=== PATIENT | female | born 1975 | race Caucasian/White ===

== ENCOUNTER → 2017-05-19 | Outpatient (CLI) | payer OTHER ==
--- NOTE | 2017-05-20 15:16 | MAMMOGRAPHY REPORT ---
BILATERAL FIRST EVER DIGITAL SCREENING MAMMOGRAM TOMOSYNTHESIS WITH CAD: 05/19/2017 CLINICAL HISTORY: Routine screening. Patient has no complaints. TECHNIQUE: Breast tomosynthesis in addition to standard 2D mammography was performed. Current study was also evaluated with a Computer Aided Detection (CAD) system. COMPARISON: No prior exams were available for comparison. BREAST COMPOSITION: There are scattered areas of fibroglandular density in both breasts. FINDINGS: There is a 5 mm focal asymmetry in the lower inner middle one third of the left breast, fo r which additional spot compression tomosynthesis views and possible ultrasound are recommended. There are grouped benign dermal calcifications in the left lower inner quadrant. No other suspicious mass, architectural distortion or cluster of microcalcifications is seen. IMPRESSION: ACR BI-RADS CATEGORY 0: INCOMPLETE EVALUATION: NEED ADDITIONAL IMAGING EVALUATION The 5 mm focal asymmetry in the lower inner left breast needs additional evaluation. The patient will be called to schedule an appointment. Approximately 10% of breast cancers are not detected with mammography. A negative mammographic report should not delay biopsy if a clinically suggestive mass is present. Sophia Tabor M.D. ay/:05/19/2017 15:39:57 Microbiology Laboratory Manager: Sonal SIMENTAL(Nish)(Kim), [facility] letter sent: Addl Imaging 0 BI-RADS Code: ACR BI-RADS Category 0: Incomplete Evaluation: Need Additional Imaging Evaluation
== END | disposition home or self-care (01) ==
LOC: C.MAMM 14:19
PROVIDERS: ATTEND Family Medicine
DX: Z12.31 Encounter for screening mammogram for malignant neoplasm of breast (principal); N64.9 Disorder of breast, unspecified

== ENCOUNTER → 2017-06-16 | Outpatient (CLI) | payer OTHER ==
--- NOTE | 2017-06-17 07:58 | MAMMOGRAPHY REPORT ---
UNILATERAL LEFT DIGITAL DIAGNOSTIC MAMMOGRAM TOMOSYNTHESIS AND TARGETED LEFT ULTRASOUND: 06/16/2017 CLINICAL HISTORY: Callback from baseline screening mammogram for a 5 mm focal asymmetry in the lower inner quadrant of the left breast. No strong family history of breast cancer. TECHNIQUE: Spot compression left CC and MLO tomosynthesis images were obtained. COMPARISON: Comparison is made to exam dated: 05/19/2017 mammogram - [facility]. BREAST COMPOSITION: There are scattered areas of fibroglandular density in the left breast. FINDINGS: The supplemental spot compression tomosynthesis views of the left breast demonstrate a pers istent 2.7 x 5.7 x 3.4 mm mixed density circumscribed oval to gently lobulated mass. There is centra l lucency identified. No associated architectural distortion or calcification. Further evaluation w [facility] ultrasound was performed. Targeted ultrasound was performed throughout the left lower inner quadrant. There is a subtle mixed echogenicity anechoic and isoechoic triangular mass in the 9:00 left breast, 4 cm from the nipple, me asuring approximately 4.7 x 1.8 x 5.0 mm. This may possibly correspond with the mammographic mass an d could represent focal duct ectasia or a small microcyst cluster. No other suspicious solid or cyst ic mass was seen throughout the entire medial left breast on targeted ultrasound. IMPRESSION: ACR-BI-RADS CATEGORY 3: PROBABLY BENIGN, TARGETED ULTRASOUND ACR-BI-RADS CATEGORY 3: PRO BABLY BENIGN The persistent benign-appearing circumscribed mixed density 5.7 mm mass in the lower inner middle one third of the left breast could represent focal duct ectasia or a microcystic cluster identified in t he 9:00 left breast on ultrasound. Overall, these findings have benign mammographic and sonographic features, but given that it was identified on a baseline exam, a short interval follow-up left diagno stic tomosynthesis mammogram and repeat targeted ultrasound is recommended to ensure stability in 6 m onths. These results and recommendations were discussed with the patient at the time of the exam. Approximately 10% of breast cancers are not detected with mammography. A negative mammographic report should not delay biopsy if a clinically suggestive mass is present. Sophia Tabor M.D. ay/:06/16/2017 13:36:08 Biological Inspector: [place] SIMENTAL(Nish)(M), [facility] letter sent: Follow Up Recommended 3 BI-RADS Code: ACR-BI-RADS Category 3: Probably Benign Ultrasound BI-RADS: ACR-BI-RADS Category 3: Pr obably Benign
== END | disposition home or self-care (01) ==
LOC: C.MAMM 12:28
PROVIDERS: ATTEND Family Medicine
DX: N63.24 Unspecified lump in the left breast, lower inner quadrant (principal)